=== PATIENT | female | born 1985 | race Caucasian/White ===

== ENCOUNTER 2017-06-16 14:41 | Emergency (ER) | payer OTHER ==
[~2017-06-16] VITALS: Ht 162.6 cm; Wt 63.0 kg
[~2017-06-16 14:41] MED LIST: CEPH-460 PO; PRENTAB72 PO
[2017-06-16 14:43] VITALS: BP 126/75; PULSE 84; RESP 16; TEMP 97.8; O2SAT 100
[2017-06-16] MEDS ORDERED: SODIUM CHLORIDE 0.9% FLUSH 10 ML FLUSH IV FLUSH PRN (15:00)
[2017-06-16] MEDS ORDERED: TRICTAB PO (15:06)
[2017-06-16 15:54] LABS: AUTOMATED NEUTROPHIL # 4.4 TH/MM3 (1.8-7.7); BASOPHIL % 0.5 % (0.0-2.0); EOSINOPHIL # 0.2 TH/MM3 (0-0.4); EOSINOPHIL % 2.5 % (0.0-4.0); HEMATOCRIT 38.8 % (35.0-46.0); HEMO FLAGS DIFF FINAL; LYMPH % 32.2 % (9.0-44.0); LYMPHOCYTE # 2.4 TH/MM3 (1.0-4.8); MEAN CELL VOLUME 85.9 FL (80.0-100.0); MEAN CORPUSCULAR HEMOGLOBIN 28.9 PG (27.0-34.0); MEAN CORPUSCULAR HGB CONC 33.6 % (32.0-36.0); MONO % 5.7 % (0.0-8.0); NEUT % 59.1 % (16.0-70.0); PLATELET COUNT 216 TH/MM3 (150-450); RED BLOOD COUNT 4.52 MIL/MM3 (4.00-5.30); RED CELL DISTRIBUTION WIDTH 13.1 % (11.6-17.2); WHITE BLOOD COUNT 7.4 TH/MM3 (4.0-11.0)
[2017-06-16 16:08] LABS: BICARBONATE 27.1 MEQ/L (21.0-32.0); POTASSIUM 3.6 MEQ/L (3.5-5.1)
[2017-06-16 16:34] LABS: BLOOD, URINE SMALL (NEG); GLUCOSE,URINE NEG (NEG); KETONE, URINE NEG (NEG); NITRITE,URINE NEG (NEG); PH, URINE 6.5 (5.0-8.5); SQUAMOUS EPITHELIAL CELL URINE 3 /hpf (0-5); URINE COLOR COLORLESS (YELLW/STRAW)
[2017-06-16 16:37] LABS: COMMENT (UR) CULT NOT INDICATED; CULTURE IF INDICATED CULT NOT INDICATED
--- NOTE | 2017-06-16 17:09 | PD ---
HPI Chief Complaint: Related Problem Time Seen by Provider: 14:54 Travel History International Travel<30 days: No Contact w/Intl Traveler<30days: No Traveled to known affect area: No History of Present Illness HPI Patient is a 32-year-old female at approximately 6 weeks' gestational age presents emergency department for evaluation of vaginal spotting. Patient states she's also had some cramping in her back radiating around to her low pelvis. Patient states she's never had any competitions with her previous pregnancies and just wanted to be checked out. She states she's had an ultrasound with her OB earlier this month which did show an intrauterine . Denies any passes tissue, and yet. No fevers no difficulty urination, no discharge. PFSH Past Medical History Cancer: No Diabetes: No Hepatitis: No Hiatal Hernia: No Hypertension: No Respiratory: Yes (excercise induced asthma) Thyroid Disease: No Tetanus Vaccination: < 5 Years Influenza Vaccination: Yes ?: : 1 Past Surgical History Oral Surgery: Yes (tonsillectomy wisdom teeth removed ears pinned) Tonsillectomy: Yes Social History Alcohol Use: No Tobacco Use: No Substance Use: No Allergies-Medications (Allergen,Severity, Reaction): Coded Allergies: No Known Allergies (Verified Adverse Reaction, Unknown, 06/16/17) Reported Meds & Prescriptions Reported Meds & Active Scripts Active Reported ( Vit-Ferrous Fumarate) 27 Mg Iron-1 Mg Tab 1 Tab PO DAILY Review of Systems Except as stated in HPI: all other systems reviewed are Neg Physical Exam Narrative GENERAL: Well-developed well-nourished, quite pleasant female in no distress] SKIN: Focused skin assessment warm/dry. HEAD: Atraumatic. Normocephalic. EYES: Pupils equal and round. No scleral icterus. No injection or drainage. ENT: No nasal bleeding or discharge. Mucous membranes pink and moist. NECK: Trachea midline. No JVD. CARDIOVASCULAR: Regular rate and rhythm. No murmur appreciated. RESPIRATORY: No accessory muscle use. Clear to auscultation. Breath sounds equal bilaterally. GASTROINTESTINAL: Abdomen soft, non-tender, nondistended. Hepatic and splenic margins not palpable. GENITOURINARY: Exam performed with female structures assembler present all times, scant blood in the vaginal vault, there is some membranous tissue present at the cervical os cervix is closed, no cervical motion tenderness no bimanual tenderness. No lesions seen.. MUSCULOSKELETAL: No obvious deformities. No clubbing. No cyanosis. No edema. NEUROLOGICAL: Awake and alert. No obvious cranial nerve deficits. Motor grossly within normal limits. Normal speech. PSYCHIATRIC: Appropriate mood and affect; insight and judgment normal. Data Data Last Documented VS Vital Signs Date Time Temp Pulse Resp B/P (MAP) Pulse Ox O2 Delivery O2 Flow Rate FiO2 06/16/17 17:34 06/16/17 14:43 97.8 84 16 100 Room Air Orders Orders Basic Metabolic Panel (Bmp) (06/16/17 14:58) Beta Hcg (Quant/Titer) (06/16/17 14:58) Complete Blood Count With Diff (06/16/17 14:58) Iv Access Insert/Monitor (06/16/17 14:58) Ecg Monitoring (06/16/17 14:58) Oximetry (06/16/17 14:58) Sodium Chloride 0.9% Flush (Ns Flush) (06/16/17 15:00) Urinalysis - C+S If Indicated (06/16/17 14:58) Ed Urine Pregnancytest Poc (06/16/17 14:58) Ed Discharge Order (06/16/17 17:09) Wet Prep Profile (06/16/17 17:27) Gc And Chlamydia Pcr (06/16/17 17:27) Labs Laboratory Tests Test 06/16/17 15:15 White Blood Count 7.4 TH/MM3 Red Blood Count 4.52 MIL/MM3 Hemoglobin 13.1 GM/DL Hematocrit 38.8 % Mean Corpuscular Volume 85.9 FL Mean Corpuscular Hemoglobin 28.9 PG Mean Corpuscular Hemoglobin Concent 33.6 % Red Cell Distribution Width 13.1 % Platelet Count 216 TH/MM3 Mean Platelet Volume 8.7 FL Neutrophils (%) (Auto) 59.1 % Lymphocytes (%) (Auto) 32.2 % Monocytes (%) (Auto) 5.7 % Eosinophils (%) (Auto) 2.5 % Basophils (%) (Auto) 0.5 % Neutrophils # (Auto) 4.4 TH/MM3 Lymphocytes # (Auto) 2.4 TH/MM3 Monocytes # (Auto) 0.4 TH/MM3 Eosinophils # (Auto) 0.2 TH/MM3 Basophils # (Auto) 0.0 TH/MM3 CBC Comment DIFF FINAL Differential Comment Urine Color COLORLESS Urine Turbidity HAZY Urine pH 6.5 Urine Specific Jenkins 1.001 Urine Protein NEG mg/dL Urine Glucose (UA) NEG mg/dL Urine Ketones NEG mg/dL Urine Occult Blood SMALL Urine Nitrite NEG Urine Bilirubin NEG Urine Urobilinogen LESS THAN 2.0 MG/DL Urine Leukocyte Esterase NEG Urine RBC 1 /hpf Urine WBC 2 /hpf Urine Squamous Epithelial Cells 3 /hpf Microscopic Urinalysis Comment CULT NOT INDICATED Blood Urea Nitrogen 7 MG/DL Creatinine 0.76 MG/DL Random Glucose 93 MG/DL Calcium Level 9.1 MG/DL Sodium Level 138 MEQ/L Potassium Level 3.6 MEQ/L Chloride Level 105 MEQ/L Carbon Dioxide Level 27.1 MEQ/L Anion Gap 6 MEQ/L Estimat Glomerular Filtration Rate 88 ML/MIN Human Chorionic Gonadotropin, Quant 1018 MIU/ML MDM Medical Decision Making Medical Screen Exam Complete: Yes Emergency Medical Condition: Yes Differential Diagnosis Inevitable miscarriage, vaginal bleeding and , completed miscarriage Narrative Course Patient roomed in emergency department, physical exam findings consistent with either an inevitable miscarriage or completed miscarriage, hCG today is only 1000, initially consideration was given a pelvic ultrasound but seeing her hCG level is unlikely that the ultrasound change her management. Think very likely she is already completed a miscarriage. At this time I recommend that she have a repeat hCG in 48 hours and she verbalized understanding and agreement. Notably upset the patient was consoled, very low index suspicion for ectopic in this patient as her abdomen is benign. Diagnosis Primary Impression: Inevitable complete miscarriage without complication Additional Instructions: Recommend return to the ED in 48 hours for repeat blood draw. Disposition: 01 DISCHARGE HOME Condition: Stable Matthew Tong MD Jun 16, 2017 17:09
[2017-06-16 21:13] LABS: CHLAMYDIA PCR NOT DETECTED (NOT DETECT); NEISSERIA PCR NOT DETECTED (NOT DETECT)
== END 2017-06-16 17:35 | disposition home or self-care (01) ==
LOC: NEPD 14:41
DX: O03.9 Complete or unspecified spontaneous abortion without complication (principal)
CPT/HCPCS: 80048; 81001; 84702; 84703; 85025; 87210; 87491; 87591; 99283; 99285

== ENCOUNTER → 2017-10-28 | Outpatient (CLI) | payer OTHER ==
[~2017-10-28] MED LIST changes: -CEPH-460 PO; -PRENTAB72 PO; +TRICTAB PO
[2017-10-28 11:49] LABS: AUTOMATED NEUTROPHIL # 3.5 TH/MM3 (1.8-7.7); BASOPHIL % 0.7 % (0.0-2.0); EOSINOPHIL # 0.1 TH/MM3 (0-0.4); EOSINOPHIL % 2.1 % (0.0-4.0); HEMATOCRIT 41.4 % (35.0-46.0); HEMOGLOBIN 13.7 GM/DL (11.6-15.3); LYMPH % 35.6 % (9.0-44.0); LYMPHOCYTE # 2.2 TH/MM3 (1.0-4.8); MEAN CELL VOLUME 85.9 FL (80.0-100.0); MEAN CORPUSCULAR HEMOGLOBIN 28.4 PG (27.0-34.0); MEAN CORPUSCULAR HGB CONC 33.1 % (32.0-36.0); MEAN PLATELET VOLUME 9.1 FL (7.0-11.0); MONO % 6.4 % (0.0-8.0); MONOCYTE # 0.4 TH/MM3 (0-0.9); NEUT % 55.2 % (16.0-70.0); PLATELET COUNT 197 TH/MM3 (150-450); RED BLOOD COUNT 4.81 MIL/MM3 (4.00-5.30); RED CELL DISTRIBUTION WIDTH 13.8 % (11.6-17.2); WHITE BLOOD COUNT 6.3 TH/MM3 (4.0-11.0)
[2017-10-28 12:13] LABS: BICARBONATE 28.5 MEQ/L (21.0-32.0); BLOOD UREA NITROGEN 9 MG/DL (7-18); CHLORIDE 106 MEQ/L (98-107); CREATININE 0.67 MG/DL (0.50-1.00); GLOMERULAR FILTRATION RATE 101 ML/MIN (>89); GLUCOSE,FASTING 81 MG/DL (74-99); SODIUM (NA) 140 MEQ/L (136-145)
[2017-10-28 12:33] LABS: BILIRUBIN, URINE NEG (NEG); BLOOD, URINE NEG (NEG); GLUCOSE,URINE NEG (NEG); KETONE, URINE NEG (NEG); NITRITE,URINE NEG (NEG); SQUAMOUS EPITHELIAL CELL URINE <1 /hpf (0-5); URINE LEUKOCYTE ESTERASE NEG (NEG)
[2017-10-28 12:36] LABS: URINE COLOR STRAW (YELLW/STRAW)
== END ==
LOC: CPRE 10:39
PROVIDERS: ATTEND Obstetrics & Gynecology
DX: Z01.812 Encounter for preprocedural laboratory examination (principal); N81.2 Incomplete uterovaginal prolapse; N39.3 Stress incontinence (female) (male)
CPT/HCPCS: 36415; 80048; 81001; 84703; 85025

== ENCOUNTER 2017-11-03 05:40 | Observation (INO) | payer OTHER ==
--- NOTE | 2017-11-02 17:55 | MH ---
cc: Sana Azul MD DATE OF ADMISSION: 11/03/2017 CHIEF COMPLAINT: Unacceptable prolapse of the uterus and bladder interfering with quality of life. SCHEDULED PROCEDURE: Total vaginal hysterectomy, cystocele repair. HISTORY OF PRESENT CONDITION: The patient is a 32-year-old white female, 3, para 2-0-1-3, with LMP 2 weeks ago, who presents over the course of a number of months with increasing uterine prolapse and bladder descent. She is unable to do her regular daily activities with her 2 daughters and has decided against future children and wants a definitive repair for this. She denies problems moving her bowels. She does have stress incontinence at times and urinary frequency with inadequate emptying of bladder and occasional urinary retention. She does not smoke, drink or use illicit drugs. Her general health is excellent with no other chronic or systemic illnesses. She has had normal Pap smears. She has not yet had mammography. FAMILY HISTORY: Noncontributory. PHYSICAL EXAMINATION: GENERAL: She is a well-developed, well-nourished white female, in good health. VITAL SIGNS: Her blood pressure is 108/66. Her height is 5 feet 4 inches. Her weight is 145. NECK: She has no thyroid enlargement. LUNGS: Clear. HEART: Rate and rhythm are regular without murmur, heave, thrill, or thrills. BREASTS: Without dominant mass. ABDOMEN: Benign. GENITOURINARY: Perineum is estrogenized. Supine with Valsalva, the cervix comes down to the introitus with the bladder coming down too. There is not a significant rectocele and no real significant enterocele. The uterus is anteverted and it is mobile obviously, nontender and not enlarged. The urethra collapsed well. The tissues are well rugated. There is no sign of estrogen deprivation or infection. EXTREMITIES: Unremarkable. IMPRESSION: Symptomatic uterine and bladder prolapse in a young woman who desires no more children, but wants pelvic reconstruction to improve her quality of life and ability to do activities with her children. Risks, benefits, expectations including failure of this procedure to address pelvic floor issues with recurrence of vaginal wall prolapse have been discussed in great detail. She has signed consents and is scheduled for the morning. MD RANDOLPH Rand/SB , 05:35 PM , 05:53 PM
[~2017-11-03] VITALS: Ht 162.6 cm; Wt 63.7 kg
[2017-11-03] MEDS ORDERED: METOPROLOL TARTRATE 25 MG TAB PO PRN (06:15)
[2017-11-03] MEDS ORDERED: LACTATED RINGER'S 1000 ML IV PRN (06:15)
[2017-11-03] MEDS ORDERED: CHLORHEXIDINE GLUCONATE 2 % 1 PACK (2 CLOTHS) TOPICAL PRN (06:15)
[2017-11-03] MEDS ORDERED: POVIDONE IODINE 5% (ANTISEPSIS KIT) 4 APPLICATIONS EACH NARE PRN (06:15)
[2017-11-03] MEDS ORDERED: ceFAZolin 1,000 MG/NS 100 ML IV SCH ×2 (06:15)
[2017-11-03] MEDS ORDERED: SODIUM CHLORID 0.9% 500 ML IV PRN (06:15)
[2017-11-03] MEDS ORDERED: ACETAMINOPHEN 1000 MG/100 ML 100 ML IV ONE (06:47)
[2017-11-03] MEDS ORDERED: APREPITANT 40 MG CAP ONE (06:58)
[2017-11-03] MEDS ORDERED: VASOPRESSIN 20 UNITS/ML VIAL ONE (07:17)
[2017-11-03] MEDS ORDERED: ESTROGENS CONJUGATED VAG CREA 15 APPL/30 GM TUBE ONE (07:18)
[2017-11-03] MEDS ORDERED: SODIUM CHLORIDE 0.9% 20 ML VIAL ONE (07:23)
[2017-11-03] MEDS ORDERED: BUPIVACAINE/EPINEPHRINE 0.5% PF 10 ML VIAL INFIL ONE (08:10)
[2017-11-03] MEDS ORDERED: MORPHINE SULFATE 4 MG/ML INJ ONE (09:28)
[2017-11-03] MEDS ORDERED: MIDAZOLAM HCL 2 MG/2 ML VIAL ONE (09:29)
[2017-11-03] MEDS ORDERED: ZOLPIDEM TARTRATE 5 MG TAB PO PRN (09:30)
[2017-11-03] MEDS: KETOROLAC TROMETHAMINE 30 MG/ML (IVP) VIAL IVP SCH ×3 (09:30→22:48)
[2017-11-03] MEDS: DOCUSATE SODIUM 100 MG CAP PO SCH ×2 (09:30→22:48)
[2017-11-03] MEDS ORDERED: ACETAMINOPHEN/HYDROcodone 325 MG/5 MG TAB PO PRN (09:30)
[2017-11-03] MEDS ORDERED: diphenhydrAMINE HCL 25 MG CAP PO PRN (09:30)
[2017-11-03] MEDS ORDERED: oxyCODONE/ACETAMINOPHEN 5 MG/325 MG TAB PO PRN (09:30)
[2017-11-03] MEDS ORDERED: ONDANSETRON HCL 4 MG/2 ML VIAL IVP PRN (09:30)
[2017-11-03] MEDS ORDERED: SODIUM CHLORIDE 0.9% FLUSH 10 ML FLUSH IV FLUSH PRN (09:30)
[2017-11-03] MEDS ORDERED: LORazepam 0.5 MG TAB PO PRN (09:30)
--- NOTE | 2017-11-03 09:32 | PD.OP ---
Operative Report Date of Surgery: Nov 03, 2017 Preoperative Diagnosis: uterine prolapse near procidentia questionable cystocele Postoperative Diagnosis: 3rd degree uterine prolapse remaining pelvic structures normal Procedure: TVH right salpingectomy enterocele obliteration cystoscopy Anesthesia: GET Surgeon: Sana Azul Chief Warden(s): Angeli [id number] Operation and Findings: Sana Bell MD Nov 03, 2017 09:32
--- NOTE | 2017-11-03 09:52 | MP ---
cc: Sana Azul MD DATE OF OPERATION: 11/03/2017 PREOPERATIVE DIAGNOSIS: Uterine prolapse with near procidentia and questionable cystocele. POSTOPERATIVE DIAGNOSIS: 1. Third degree uterine prolapse. 2. Enterocele. 3. Negligible cystourethrocele. 4. First degree rectocele. PROCEDURE: Total vaginal hysterectomy, right salpingectomy, enterocele obliteration and cystoscopy. SURGEON: Sana Azul MD. ORIENTATION & MOBILITY SPECIALIST: DANK Suh. FINDINGS: Examination under anesthesia revealed a uterus that could be grasped and brought down to partially outside of the introitus. When the uterus was removed, the enterocele obliterated and the cuff repaired. The bladder was very well elevated and well rugated and it was felt that a tape and cystocele repair were not indicated. She had a first degree rectocele that I did not feel should be removed, so the procedure ended up being a total vaginal hysterectomy, right salpingectomy, enterocele obliteration and cystoscopy. Ovaries were normal. Tubes were normal. Estimated blood loss was less than 100 mL. Sponge, instrument and needle count were correct. She tolerated the procedure well and she went to the recovery room in stable condition. PROCEDURE NOTE: The patient was identified as Amina Eve in the holding area. Her permit was reviewed with her. She was taken to the operating room, placed under general endotracheal anesthesia, prepped and draped in the usual sterile fashion. A time-out was performed with all in attendance. She had received 1 gram Ancef within the hour preop IV. She had sequential stockings on before induction therapy. After being prepped and draped, a Patel catheter was placed. Examination under anesthesia was performed. Then, the cervix was grasped with a Leahey clamp, brought down past the introitus, infiltrated with Marcaine with epinephrine and circumcised with the Bovie on cutting. Both the posterior and anterior cul-de-sacs were entered sharply and then curved Henrietta clamps were used to clamp, cut, and suture ligate the uterosacrals which were then foreshortened and subsequent pedicles were clamped, cut and suture ligated up to the tuboovarian's and the uterus was removed. The right tube was laying in the field and excised also. Sponge sticks and careful evaluation were done to assess all pedicles, which were clean and then an enterocele repair was done with a Gunjan and partial Cruz's to obliterate the enterocele. At this point, the uterosacrals were then plicated and then a vaginal cuff was created using a running interlocking vertical suture. Careful evaluation of the vaginal vault suggested no further repair was indicated given her age and general state of health. The Patel was removed and the 30-degree cystoscope placed into the bladder which showed a normal bladder with no iatrogenic injury and good flow from both ureteral orifices. The Patel was then replaced. She was placed in a dorsal supine position, awoken, and taken to the recovery room in stable condition. Sana Azul MD PPC/DL , 09:32 AM , 09:51 AM
[2017-11-03] MEDS ORDERED: *morphine SULFATE 4 MG/ML PERIprocedure ONLY ONE (09:54)
[2017-11-03 10:00] VITALS: BP 95/57; PULSE 74; RESP 18; TEMP 97.6; O2SAT 100
[2017-11-03] MEDS ORDERED: PILL SPLITTER OTHER PRN (10:15)
[2017-11-03] MEDS ORDERED: DO NOT ADM ANY ANTICOAGULANT DRUGS PRN (11:15)
[2017-11-03] MEDS: oxyCODONE/ACETAMINOPHEN 5 MG/325 MG TAB PO PRN (13:53)
[2017-11-03 18:10] VITALS: BP 102/65; PULSE 89; RESP 18; TEMP 97.9
[2017-11-03 20:00] VITALS: BP 102/66; PULSE 88; RESP 18; TEMP 98.5; O2SAT 94
[2017-11-03] MEDS ORDERED: SODIUM CHLORIDE 0.9% FLUSH 10 ML FLUSH IV FLUSH SCH (21:00)
[2017-11-03] MEDS: LACTATED RINGER'S 1000 ML INJ 1,000 ML IV SCH (22:50)
[2017-11-04] VITALS: BP 90/54; PULSE 79; RESP 16; TEMP 97.8; O2SAT 98
--- NOTE | 2017-11-04 03:57 | HHI.DCPOC ---
Discharge Care Plan Report Symptoms to Your Doctor -Temperature above 100.5 degrees -Redness, of incision or excessive or foul smelling drainage -Unusual pain or calf pain -Increased vaginal bleeding -Painful or difficulty urinating -Feelings of extreme sadness or anxiety after 2 weeks Goals to Promote Your Health * To prevent worsening of your condition and complications * To maintain your health at the optimal level Directions to Meet Your Goals Take your medications as prescribed Follow your dietary instruction Follow activity as directed Ensure plenty of rest for recovery Drink fluids for hydration Keep your appointments as scheduled Take your immunizations and boosters as scheduled If your symptoms worsen call your PCP, if no PCP go to Urgent Care Center or Emergency Room Smoking is Dangerous to Your Health. Avoid second hand smoke Call the 24-hour crisis hotline for domestic abuse at Sana Azul MD Nov 04, 2017 03:57
[2017-11-04 04:00] VITALS: BP 94/56; PULSE 65; RESP 16; TEMP 98.3; O2SAT 100
[2017-11-04] MEDS: KETOROLAC TROMETHAMINE 30 MG/ML (IVP) VIAL IVP SCH (04:42)
[2017-11-04 05:48] LABS: BICARBONATE 25.6 MEQ/L (21.0-32.0); CREATININE 0.61 MG/DL (0.50-1.00)
[2017-11-04 06:13] LABS: AUTOMATED NEUTROPHIL # 4.8 TH/MM3 (1.8-7.7); BASOPHIL % 0.2 % (0.0-2.0); EOSINOPHIL # 0.1 TH/MM3 (0-0.4); EOSINOPHIL % 0.8 % (0.0-4.0); HEMATOCRIT 35.3 % (35.0-46.0); LYMPH % 29.3 % (9.0-44.0); LYMPHOCYTE # 2.2 TH/MM3 (1.0-4.8); MEAN CELL VOLUME 85.7 FL (80.0-100.0); MEAN CORPUSCULAR HEMOGLOBIN 29.1 PG (27.0-34.0); MEAN CORPUSCULAR HGB CONC 33.9 % (32.0-36.0); MONO % 6.8 % (0.0-8.0); MONOCYTE # 0.5 TH/MM3 (0-0.9); NEUT % 62.9 % (16.0-70.0); PLATELET COUNT 155 TH/MM3 (150-450); RED BLOOD COUNT 4.12 MIL/MM3 (4.00-5.30); RED CELL DISTRIBUTION WIDTH 13.8 % (11.6-17.2); WHITE BLOOD COUNT 7.6 TH/MM3 (4.0-11.0)
[2017-11-04 08:00] VITALS: BP 93/59; PULSE 80; RESP 18; TEMP 98.3
[2017-11-04] MEDS: DOCUSATE SODIUM 100 MG CAP PO SCH (09:25)
[2017-11-04] MEDS: oxyCODONE/ACETAMINOPHEN 5 MG/325 MG TAB PO PRN (09:31)
--- NOTE | 2017-11-04 10:28 | HHI.PR ---
Subjective Remarks Doing well, pain is well controlled, eating well. Objective Vital Signs Vital Signs Date Time Temp Pulse Resp B/P (MAP) Pulse Ox O2 Delivery O2 Flow Rate FiO2 11/04/17 08:00 98.3 80 18 93/59 (70) 11/04/17 04:00 98.3 65 16 94/56 (69) 100 11/04/17 00:00 97.8 79 16 90/54 (66) 98 11/03/17 20:00 98.5 88 18 102/66 (78) 94 11/03/17 18:10 97.9 89 18 102/65 (77) I/O 11/03/17 11/03/17 11/03/17 11/04/17 11/04/17 11/04/17 07:00 15:00 23:00 07:00 15:00 23:00 Intake Total 1350 ml Output Total 450 ml 1775 ml 950 ml 1100 ml Balance 900 ml -1775 ml -950 ml -1100 ml Intake Oral 150 ml Other 1200 ml Output Urine Total 350 ml 1775 ml 950 ml 1100 ml Estimated Blood Loss 100 ml Result Diagram: 11/04/17 0450 11/04/17 0450 Objective Remarks Chest is clear, regular rate and rhythm. Abdomen is soft and non-distended. perineum dry Ext no CCE. A/P Assessment and Plan Post Op Day 1 Doing well Home today and return to office in two weeks. Sana Azul MD Nov 04, 2017 10:28
[2017-11-04] MEDS: LACTATED RINGER'S 1000 ML INJ 1,000 ML IV SCH ×2 (10:30→10:49)
== END 2017-11-04 15:56 | disposition home or self-care (01) ==
LOC: HSDC 05:40 → HSDI 09:25 → H1EA 09:59
PROVIDERS: ADMIT Obstetrics & Gynecology; ATTEND Obstetrics & Gynecology
DX: N81.3 Complete uterovaginal prolapse (principal); K46.9 Unspecified abdominal hernia without obstruction or gangrene; N72 Inflammatory disease of cervix uteri; N83.8 Other noninflammatory disorders of ovary, fallopian tube and broad ligament; N39.3 Stress incontinence (female) (male)
CPT/HCPCS: 00840; 58263; 80048; 85025; 88305; 96374; 96375; 96376; G0378; J0131; J0690; J1885; J2250; J2270; J2405; J3010; J7120; J8501